=== PATIENT | male | born 1960 | race African-American/Black ===

== ENCOUNTER 2016-06-10 19:42 | Emergency (ER) | payer MEDICAID, OTHER ==
[~2016-06-10] VITALS: Ht 177.8 cm; Wt 70.5 kg
[2016-06-10 20:05] VITALS: Ht 177.8 cm; Wt 70.5 kg
[2016-06-11] MEDS ORDERED: LORA1TAB PO (00:02)
[2016-06-11 00:44] VITALS: PULSE 75; RESP 16
--- NOTE | 2016-06-11 01:01 | ERD ---
ER Documentation Chief Complaint Date/Time DATE: 06/11/16 TIME: 00:42 Chief Complaint cough x 5 days, insomnia, body aches HPI 55-year-old male complaining of insomnia 2 weeks. Patient stated that he wakes up every hour feeling short of breath. He uses albuterol inhaler, which only helped for about 10 minutes. He has a cough 1 week. Cough is only intermittent, does not interfere with sleep. Patient reports under a lot of stress both at home and work. He has history of asthma. Denies fever or chills. ROS All systems reviewed and are negative except as per history of present illness. Medications Home Meds Active Scripts Lorazepam* (Lorazepam*) 1 Mg Tablet, 1 MG PO QHS Y for INSOMNIA, #10 TAB Prov:WAYNE LEZAMA Courtney. 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 06/11/16 Allergies Allergies: Coded Allergies: No Known Allergy (Unverified , 06/10/16) PMhx/Soc Medical and Surgical Hx: pt denies Surgical Hx History of Surgery: No Anesthesia Reaction: No Hx Neurological Disorder: No Hx Respiratory Disorders: Yes (SOB and weakness) Hx Cardiac Disorders: No Hx Psychiatric Problems: No Hx Miscellaneous Medical Probl: No Hx Alcohol Use: No Hx Substance Use: No Hx Tobacco Use: No Smoking Status: Never smoker Physical Exam Vitals Vital Signs Date Time Temp Pulse Resp B/P Pulse Ox O2 Delivery O2 Flow Rate FiO2 06/10/16 20:05 98.3 84 20 150/71 100 Physical Exam General impression: Well-developed, well-nourished. Alert, oriented, in no acute distress Head: Normocephalic, atraumatic. Eyes: PERRL, EOM normal. Conjunctiva not injected. ENT: External canals clear. TM's pearly guevara. Nasal mucosa, oral mucosa and oropharynx are normal. Neck: Supple, nontender. No lymphanopathy. No nuchal rigidity. Respiration: Normal respiratory effort. Lungs clear to auscultate bilaterally. No wheezes, rales or rhonchi. Cardiovascular: Regular rate and rhythm. No murmurs or extra heart sounds. Abdomen: Abdomen normal to inspection. Nontender. No masses or organomegaly. Bowel sounds normal. Neuro: Mental status normal, speech normal. BATTALION FIRE CHIEF grossly intact. Skin: Normal turgor. No rash or lesions. Psych: Normal mood and affect. Procedures/MDM Well-appearing 55-year-old male presented to ED with insomnia 2 weeks. Patient reports shortness of breath, however he is lungs are clear to auscultate , his O2 sat 100%. He does not appear to have respiratory distress. I suspect his sense of shortness breath may be anxiety related. Patient has appointment with his PCP next week. I will prescribe for him Ativan nightly for a few days , and have him follow-up with his PCP. Patient appears well, stable for discharge and outpatient management. Medical decision making shared with patient and family. Education provided to patient and family. Patient and family expressed understanding of the plan. Medications on discharge: Ativan. Follow-up: Primary care provider in 2-3 days or return to ED if worse. Departure Diagnosis: Primary Impression: Insomnia Insomnia type: unspecified Qualified Code: G47.00 - Insomnia, unspecified type Additional Impression: Anxiety Condition: Good Patient Instructions: Your Body's Response to Anxiety, Treating Insomnia Referrals: [facility] YOU HAVE RECEIVED A MEDICAL SCREENING EXAM AND THE RESULTS INDICATE THAT YOU DO NOT HAVE A CONDITION THAT REQUIRES URGENT TREATMENT IN THE EMERGENCY DEPARTMENT. FURTHER EVALUATION AND TREATMENT OF YOUR CONDITION CAN WAIT UNTIL YOU ARE SEEN IN YOUR DOCTORS OFFICE WITHIN THE NEXT 1-2 DAYS. IT IS YOUR RESPONSIBILITY TO MAKE AN APPOINTMENT FOR FOLOW-UP CARE. IF YOU HAVE A PRIMARY DOCTOR --you should call your primary doctor and schedule an appointment IF YOU DO NOT HAVE A PRIMARY DOCTOR YOU CAN CALL OUR PHYSICIAN REFERRAL HOTLINE AT IF YOU CAN NOT AFFORD TO SEE A PHYSICIAN YOU CAN CHOSE FROM THE FOLLOWING [facility] [id number] [facility] [address] [facility] [address] [facility]. [facility] [address] [facility]. [facility] [address] [facility]. [facility]. [address] Additional Instructions: Call your primary care doctor TOMORROW for an appointment during the next 2-3 days.See the doctor sooner or return here if your condition worsens before your appointment time. WAYNE LEZAMA NP Jun 11, 2016 00:57
== END 2016-06-11 00:45 | disposition home or self-care (01) ==
LOC: FTE 19:42
DX: G47.00 Insomnia, unspecified (principal); F41.9 Anxiety disorder, unspecified
CPT/HCPCS: 99283

== ENCOUNTER 2016-06-16 08:32 | Inpatient (IN) | payer MEDICAID ==
[~2016-06-16] VITALS: Ht 172.7 cm; Wt 72.7 kg
[2016-06-16] VITALS (16 sets, daily range): BP systolic 77–156; BP diastolic 31–135; PULSE 64–136; RESP 22–49; TEMP 97.1; Ht 172.7 cm; Wt 72.7 kg
[~2016-06-16 08:32] MED LIST: LORA1TAB PO
[2016-06-16] MEDS ORDERED: ASPIRIN 325 MG TAB PO STA (08:34)
[2016-06-16] MEDS ORDERED: SOD CHLORIDE 0.9% 1,000 ML IV STA (08:34)
[2016-06-16] MEDS ORDERED: ADENOSINE 2 ML ONE (08:36)
[2016-06-16] MEDS ORDERED: DILTIAZEM-D5W 125MG/125ML DRIP 125 ML IV STA (08:53)
[2016-06-16] MEDS ORDERED: DILTIAZEM 25 MG INJ IV STA (08:53)
[2016-06-16] MEDS ORDERED: ADENOSINE 6 MG INJ IV ONE ×2 (09:00→19:00)
--- NOTE | 2016-06-16 09:24 | ERA ---
ER Documentation Chief Complaint Date/Time DATE: 06/16/16 TIME: 09:20 Chief Complaint BROUGHT IN VIA EMS DUE TO TACHYCARDIA HPI 55-year-old male history of hypertension who presents with tachycardia. The patient states just prior to arrival he started to feel his heart racing. EMS reports evidence of supraventricular tachycardia and tried 6 mg then 12 mg of adenosine without effect. The patient states that it was recently at a different ER for generalized weakness and shortness of breath. He denies any pleuritic pain, no calf swelling. He states intermittent compliance with his blood pressure medications. He denies any recent drugs or alcohol. The patient currently denies any chest pain lightheadedness or shortness of breath. ROS All systems reviewed and are negative except as per history of present illness. 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 06/11/16 Allergies Allergies: Coded Allergies: No Known Allergy (Unverified , 06/10/16) PMhx/Soc History of Surgery: No Anesthesia Reaction: No Hx Neurological Disorder: No Hx Respiratory Disorders: Yes (SOB and weakness) Hx Cardiac Disorders: No Hx Psychiatric Problems: No Hx Miscellaneous Medical Probl: No Hx Alcohol Use: No Hx Substance Use: No Hx Tobacco Use: No Smoking Status: Never smoker FmHx Family History: No coronary disease, No diabetes Physical Exam Vitals Vital Signs Date Time Temp Pulse Resp B/P Pulse Ox O2 Delivery O2 Flow Rate FiO2 06/16/16 09:09 Nasal Cannula 5 06/16/16 09:04 98.5 212 36 126/100 100 06/16/16 08:50 99 4.0 Physical Exam General: Well developed, well nourished, no acute distress Head: Normocephalic, atraumatic. Eyes: Pupils equally reactive, EOM intact ENT: Moist mucous membranes Neck: Supple, no lymphadenopathy Respiratory: Lungs clear bilaterally, no distress Cardiovascular: Regular tachycardia, no murmurs, rubs, or gallops Abdominal: Soft, non-tender, non-distended, no peritoneal signs : Deferred MSK: No edema, no unilateral swelling, 5/5 strength Neurologic: Alert and oriented, moving all extremities, normal speech, no focal weakness, no cerebellar signs Skin: No rash Psych: Normal mood Result Diagram: 06/16/1690406/16/16904 Results 24 hrs Laboratory Tests Test 06/16/16 09:05 Activated Partial Thromboplast Time 45.6Sec Anion Gap 15 Basophils # 0.010^3/ul Basophils % 0.1% Blood Morphology Comment Blood Urea Nitrogen 8mg/dl Calcium Level 5.8mg/dl Carbon Dioxide Level 19mmol/L Chloride Level 111mmol/L Creatinine 0.64mg/dl Eosinophils # 0.010^3/ul Eosinophils % 0.1% Ethyl Alcohol Level < 10.0mg/dl Glucose Level 119mg/dl Hematocrit 33.3% Hemoglobin 10.9g/dl INR International Normalized Ratio 2.11 Lymphocytes # 1.510^3/ul Lymphocytes % 13.3% Magnesium Level 1.4mg/dl Mean Corpuscular Hemoglobin 28.2pg Mean Corpuscular Hemoglobin Concent 32.7g/dl Mean Corpuscular Volume 86.1fl Mean Platelet Volume 7.9fl Monocytes # 1.010^3/ul Monocytes % 8.5% Neutrophils # 9.010^3/ul Neutrophils % 78.0% Nucleated Red Blood Cells # 0.010^3/ul Nucleated Red Blood Cells % 0.0/100WBC Platelet Count 90228^3/UL Potassium Level 2.9mmol/L Prothrombin Time 23.9Sec Prothrombin Time Ratio 1.9 Red Blood Count 3.8710^6/ul Red Cell Distribution Width 16.3% Sodium Level 142mmol/L Troponin I 0.062ng/ml White Blood Count 11.610^3/ul Current Medications Medications (Trade) Dose Ordered Sig/Seth Route PRN Reason Start Time Stop Time Status Last Admin Dose Admin Sodium Chloride (NS) 1,000 ml @ 1,000 mls/hr Q1H STAT IV 06/16/16 08:34 06/16/16 09:33 DC 06/16/16 09:12 Aspirin (Aspirin) 325 mg ONCE STAT PO 06/16/16 08:34 06/16/16 08:36 DC 06/16/16 09:13 Adenosine (Adenosine) 12 mg ONCE ONCE IV 06/16/16 09:00 06/16/16 09:01 DC 06/16/16 09:13 Diltiazem HCl 20 mg 20 mg ONCE STAT IV 06/16/16 08:53 06/16/16 08:54 DC 06/16/16 09:13 Diltiazem HCl 125 ml @ 5 mls/hr ONCE STAT IV 06/16/16 08:53 06/17/16 09:52 06/16/16 09:13 Calcium Gluconate 1 gm/Sodium Chloride 110 ml @ 110 mls/hr ONCE ONCE IVPB 06/16/16 11:30 06/16/16 12:29 Potassium Chloride 50 ml @ 50 mls/hr Q1H IVPB 06/16/16 10:00 06/16/16 12:59 Magnesium Sulfate/ Dextrose (Magnesium Sulfate 1 Gm/D5W) 100 ml @ 100 mls/hr ONCE ONCE IVPB 06/16/16 10:00 06/16/16 10:59 Procedures/MDM EKG, MONITORS, & DIAGNOSTIC IMAGING: Rhythm strip: Rate/Rhythm: Narrow complex tachycardia near 200 consistent with supraventricular tachycardia Impression: SVT EKG: I reviewed and interpreted a 12-lead EKG. Rhythm: Narrow complex tachycardia, regular consistent with SVT Ectopy: None Intervals: No abnormalities ST segments: No elevations or depressions T waves: No contiguous inversions Repeat EKG EKG: I reviewed and interpreted a 12-lead EKG. Rhythm: Apparent sinus tachycardia with ectopic atrial beats Ectopy: PVC Intervals: No abnormalities ST segments: No elevations or depressions T waves: No contiguous inversions Chest x-ray: I reviewed and interpreted a 1 view of the chest Mediastinum: No enlargement Cardiac silhouette: No cardiomegaly Airspace: Clear lung finnegan bilaterally without evidence of pneumothorax Bones: No evidence of fracture LAB INTERPRETATION: Multiple electrolyte disturbances including hypokalemia, hypomagnesemia, hypocalcemia of unclear significance., Troponin negative MEDICAL DECISION MAKING: The patient presents with asymptomatic supraventricular tachycardia. He had a recent ER visit for fatigue and shortness of breath. He does not describe any pleuritic pain, no evidence of DVT. No signs or symptoms concerning for pulmonary embolism. This is likely secondary to structural process given his prolonged uncontrolled hypertension. The patient will benefit from laboratory testing and diagnostic imaging. Low threshold for inpatient hospitalization for echocardiogram. ER COURSE: The patient was given 6 and 12 of adenosine in the field. He was given a second dose of 12 mg of adenosine here in the emergency room. The patient was set up on the monitor and nasal cannula was applied, pacer pads were applied to the patient. The patient had no effect with adenosine. Given that the patient has failed 3 doses of adenosine transitioned to Cardizem was initiated. The patient was given a 20 mg IV bolus of Cardizem and started on a drip. The patient seem to have rate control but still has tachycardia with ectopy. The patient is currently on a Cardizem drip. The patient has multiple electrolyte abnormalities that are being repleted including potassium, calcium, magnesium. These are possibly playing a role in his tachyarrhythmia. The patient also appears to be anticoagulated. He was asked and states that he was started on some blood thinning medication 2 weeks ago, he does not know the name. The patient's presentation is much more complicated and there is significant information that is lacking. I believe that inpatient hospitalization would be appropriate, outside hospital records are necessary. Given that the patient has a complicated presentation of supraventricular tachycardia with possible underlying structural heart disease I would recommend inpatient hospitalization. I kept the patient and/or family informed of laboratory and diagnostic imaging results throughout the emergency room course. DISPOSITION PLAN: Telemetry admission CONSULTATION: Accepting care team and consultations: I discussed the current laboratory data, diagnostic imaging and emergency care provided. Admitting team: Dr. Swanson Admitting team indication: Insurance directed Critical Care Note: Total time: 32 minutes Indication/Organ System Threat: SVT with tachypnea arrhythmia requiring adenosine bolus, titration of cardiogenic medications. I spent the above amount of critical care time with the patient, not including billable procedures. This included chart review, consultations, repeat bedside evaluations, and titration of appropriate medications to prevent cardiopulmonary or respiratory collapse. Departure Diagnosis: Primary Impression: Supraventricular tachycardia Additional Impressions: Hypokalemia Hypomagnesemia Hypocalcemia Condition: Stable LUCIA WILLIS MD Jun 16, 2016 09:24
[2016-06-16 09:27] LABS: BASOPHILS % 0.1 % (0.0-2.0); CHLORIDE 111 mmol/L (97-110); EOSINOPHILS % 0.1 % (0.0-7.0); HEMATOCRIT 33.3 % (42.0-52.0); HEMOGLOBIN 10.9 g/dl (14.0-18.0); LYMPHOCYTES # 1.5 10^3/ul (0.8-2.9); LYMPHOCYTES % 13.3 % (15.0-51.0); MEAN CORPUSCULAR HEMOGLOBIN 28.2 pg (29.0-33.0); MEAN CORPUSCULAR HGB CONC 32.7 g/dl (32.0-37.0); MEAN CORPUSCULAR VOLUME 86.1 fl (82.0-101.0); MEAN PLATELET VOLUME 7.9 fl (7.4-10.4); MONOCYTES % 8.5 % (0.0-11.0); PLATELET COUNT 261 10^3/UL (140-440); RED BLOOD COUNT 3.87 10^6/ul (4.70-6.10); RED CELL DISTRIBUTION WIDTH 16.3 % (11.5-14.5); UNCORRECTED WBC 11.6 10^3/ul (4.8-10.8); WHITE BLOOD COUNT 11.6 10^3/ul (4.8-10.8)
[2016-06-16 09:28] LABS: SODIUM 142 mmol/L (135-144)
--- NOTE | 2016-06-16 09:28 | RADRPT ---
PROCEDURE: XR Chest. CLINICAL INDICATION: Chest pain TECHNIQUE: Single portable view of the chest was obtained COMPARISON: None FINDINGS: There is mild cardiomegaly. There is mild pulmonary vascular congestion. In addition there is a possible right upper lobe infiltrate with right subpleural density. There is a right lower lobe consolidation with right pleural effusion. There is no pneumothorax. The bones and soft tissues are unremarkable. RPTAT: AA IMPRESSION: Mild cardiomegaly with pulmonary vascular congestion. Possible right upper lobe infiltrate with right subpleural density. Right lower lobe infiltrate and right pleural effusion. Further evaluation with CT chest is recommended. .Pete Ford MD, MD Date Time Electronically viewed and signed by .Pete Ford MD, MD on 06/16/2016 09:28 .S/
[2016-06-16 09:30] LABS: CREATININE 0.64 mg/dl (0.61-1.24)
[2016-06-16 09:31] LABS: ANION GAP 15 (8-16); BLOOD UREA NITROGEN 8 mg/dl (7-20); CARBON DIOXIDE 19 mmol/L (21-31); GLUCOSE 119 mg/dl (70-220); MAGNESIUM 1.4 mg/dl (1.7-2.5)
[2016-06-16] MEDS ORDERED: NISO17TA PO (09:31)
[2016-06-16] MEDS ORDERED: LOSA1TAB20 PO (09:32)
[2016-06-16 09:33] LABS: INR 2.11; PROTIME 23.9 Sec (12.2-14.2); PT RATIO 1.9
[2016-06-16 09:34] LABS: PARTIAL THROMBOPLASTIN TIME 45.6 Sec (25.0-35.0)
[2016-06-16 09:36] LABS: CONDITION 1; LH ANALYZER COMMENTS 1; POTASSIUM 2.9 mmol/L (3.5-5.1)
[2016-06-16 09:37] LABS: CALCIUM 5.8 mg/dl (8.4-10.2); ETHANOL < 10.0 mg/dl
[2016-06-16 09:43] LABS: TROPONIN-I 0.062 ng/ml (0.00-0.12)
[2016-06-16] MEDS ORDERED: MAGNESIUM SULFATE 1 GM/D5W 100 ML IVPB ONE ×2 (10:00→19:00)
[2016-06-16] MEDS ORDERED: ACETAMINOPHEN 325 MG TAB PO PRN ×2 (10:30→14:00)
[2016-06-16] MEDS ORDERED: ONDANSETRON 4 MG INJ IV PRN ×2 (10:30→14:00)
[2016-06-16] MEDS ORDERED: CALCIUM GLUCONATE 10% 1 GM in SOD CHLORIDE 0.9% 100 ML IVPB ONE (11:30)
[2016-06-16] MEDS: POTASSIUM CHLORIDE 50 ML IVPB SCH ×3 (11:43→15:09)
[2016-06-16] MEDS ORDERED: NITROGLYCERIN 2% 1 GM OINT PKT TD STA (13:04)
[2016-06-16] MEDS ORDERED: FUROSEMIDE 20 MG INJ IV STA (13:04)
[2016-06-16] MEDS ORDERED: NACL 0.9% 3 ML SYG IV SCH (14:00)
[2016-06-16] MEDS ORDERED: VANCOMYCIN IV PER PHARMACY XX SCH (14:00)
[2016-06-16] MEDS ORDERED: HYDROCODONE/APAP (5/325) TAB PO PRN (14:00)
[2016-06-16] MEDS ORDERED: VANCOMYCIN 1.5 GM in SOD CHLORIDE 0.9% 250 ML IVPB SCH (14:30)
--- NOTE | 2016-06-16 15:44 | RADRPT ---
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 Physician: VINAY HELTON Quality: Good Procedures: Transthoracic echocardiogram with complete 2D, M-Mode, and doppler examination. Indications: Pulm Edema. 2D/M Mode Doppler Measurement Value Normal Ranges Measurement Value Normal Ranges LVIDd 2D 5.9 3.5 - 5.6 cm AV Peak Marvin 1.0 m/sec LVIDs 2D 5.0 2.1 - 4.1 cm AV Peak PG 4.0 mmHg LVPWd 2D 1.1 0.6 - 1.1 cm AI Peak PG 57.0 mmHg IVSd 2D 1.0 0.6 - 1.1 cm AI Peak Marvin 3.8 m/sec AoR Diam 2D 3.0 2.0 - 3.7 cm AI PHT 387.0 msec LA/Ao 2D 2 0 - 1 TR Peak Marvin 4.0 m/sec LA Dimen 2D 5.1 2.3 - 4.0 cm TR Peak PG 65.0 mmHg RVSP 80.0 mmHg Findings Left Ventricle: Normal left ventricular wall thickness. Mild enlargement of left ventricle cavity. Severe global left ventricular systolic dysfunction. Ejection fraction is visually estimated at 20 %. Right Ventricle: Moderate right ventricular systolic dysfunction. Mild enlargement of right ventricle. Moderate right ventricular hypokinesis. Left Atrium: There is severe enlargement of left atrium. Right Atrium: There is severe enlargement of right atrium. Mitral Valve: Mitral valve leaflets appear mildly thickened. Mild mitral annular calcification. Severe mitral valve regurgitation. Aortic Valve: Aortic cusps appear mildly calcified. Mild to moderate aortic valve regurgitation. Tricuspid Valve: Normal appearance of the tricuspid valve. Estimated peak PA systolic pressure 80 mmHg. There is moderate to severe tricuspid regurgitation. Pulmonic Valve: There is mild to moderate pulmonic regurgitation. Pericardium: Normal pericardium with no significant pericardial effusion. Aorta: Normal aortic root. IVC: Dilated IVC without respiratory collapse consistent with elevated right atrial pressure. Conclusions 1.Normal left ventricular wall thickness. Mild enlargement of left ventricle cavity. Severe global left ventricular systolic dysfunction. Ejection fraction is visually estimated at 20 %. 2.Moderate right ventricular systolic dysfunction. Mild enlargement of right ventricle. 3.Severe mitral valve regurgitation. 4.Moderate to severe tricuspid regurgitation. 5.Mild to moderate aortic valve regurgitation. 6.Severe biatrial enlargement. 7.Severe pulmonary hypertension with PAP estimated to be 80 mmHg based on RA pressure of 15 mmHg. Electronically Signed By: Neil Ford 16-Jun-2016 15:43:55 -0800 Patient Name: MAHAMED STEVEN Study Date: 16-Jun-2016 [id number]
[2016-06-16] MEDS ORDERED: LORAZEPAM 2 MG INJ IV ONE ×2 (16:30→20:30)
[2016-06-16 17:00] LABS: AADO2 Arterial 602.8 mmHg (7.0-24.0); Allen Test ACCEPTAB; Arterial COHb 0.5 % (0.0-3.0); Arterial Fraction of Oxyhgb 94.3 % (93.0-99.0); Arterial HCO3 14.2 mmol/L (22.0-26.0); Arterial MetHb 0.2 % (0.0-1.5); Arterial Total Hemglobin 13.5 g/dl (12.0-18.0); MODE HFNC
--- NOTE | 2016-06-16 17:00 | HP ---
DATE OF ADMISSION: 06/16/2016 CHIEF COMPLAINT: Weakness, shortness breath. HISTORY OF PRESENT ILLNESS: The patient is a 55-year-old male who reports history of hypertension. Otherwise denies any medical history. The patient presents with several weeks of progressively wor sening weakness and shortness of breath. He also states that he has been unable to urinate for the past 2 days. In the ED, the patient was hypoxic and started on BiPAP. The patient was also noted t o be tachycardic. The patient is a somewhat poor historian. He denies any significant medical hist ory. Denies any chest pain, any constipation or diarrhea. Denies melena. He does state that he simons s lost over 20 pounds in the past week. He denies any history of diabetes or any prostate issues. PAST MEDICAL HISTORY: Hypertension. PAST SURGICAL HISTORY: Denies. HOME MEDICATIONS: 1. Losartan. 2. Hydrochlorothiazide. 3. . ALLERGIES: NO KNOWN DRUG ALLERGIES. FAMILY HISTORY: Diabetes in father. SOCIAL HISTORY: Denies alcohol, tobacco, or drug abuse. 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 REVIEW OF SYSTEMS: A 12-point review of systems is negative except that discussed in HPI. PHYSICAL EXAMINATION: VITAL SIGNS: Temperature is 97.8, pulse is 121, respiratory rate is 20, blood pressure 130/109, sat uration 100% on 2 liters. GENERAL: Alert with mild to moderate distress. HEENT: Normocephalic, atraumatic. NECK: Supple, no JVD, no lymphadenopathy. LUNGS: Clear to auscultation. CARDIOVASCULAR: Tachycardic. ABDOMEN: Nondistended, nontender, soft. EXTREMITIES: No clubbing, cyanosis, or edema. LABORATORIES: White count 11.6, hemoglobin 10.9, platelets are 261. Chemistry: Sodium is 142, pot assium is 2.9, chloride is 111, carbon dioxide 19, calcium is 5.8. Magnesium is 1.4. INR is 2.11. U-tox is less than 10. DIAGNOSTICS: Chest x-ray shows mild cardiomegaly with pulmonary vascular congestion, possible right upper lobe infiltrate with right subpleural density right lower lobe infiltrate with right pleural effusion. Further evaluation with CT chest is recommended. ASSESSMENT AND PLAN: 1. Acute respiratory failure secondary to pulmonary edema and/or right-sided pneumonia. Patient is not tolerating BiPAP well. Was switched to high flow O2 and admitted to the ICU. Will get a pulmo nology consultation. Will treat with IV antibiotics with broad spectrum antibiotics, vancomycin and Zosyn. Will also continue his Lasix IV. Patient has already received 6 mg of Lasix in the ED. Wi ll obtain a 2D echo to evaluate for the etiology of pulmonary edema. 2. Sepsis. Patient does have a history of sepsis with tachycardia and leukocytosis and tachypnea, so sepsis may be secondary to underlying pneumonia. Will treat with broad spectrum antibiotics. Ge t an ID consultation. 3. Urinary retention. The patient has not urinated for 2 days. Patient had a Singh placed in the ED with only minimal urine noted. Will obtain a urology consultation. Patient has no elevation in his creatinine at this time. Will obtain a renal ultrasound. 4. Hyperkalemia. Repleted in the ED. 5. Hypomagnesemia. Repleted in the ED. 6. Hypocalcemia. Repleted in the ER. 7. Coagulopathy. Patient's INR is elevated. This could be secondary to DIC versus other pathology . Will obtain an ultrasound of the liver to evaluate for cirrhosis and to rule out liver pathology as the etiology of the coagulopathy. 8. History of hypertension. Blood pressure is currently stable. Will hold antihypertensive medica tions as patient appears to be septic. 9. 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 10. Prophylaxis: SCDs. Dictated By: VINAY HELTON MD BS/NTS Conf#: [id number] DID#: [id number]
[2016-06-16] MEDS ORDERED: MAGNESIUM SULFATE 3 GM in SOD CHLORIDE 0.9% 100 ML IVPB ONE (17:30)
[2016-06-16] MEDS ORDERED: POTASSIUM CHLORIDE 30 MEQ in SOD CHLORIDE 0.9% 150 ML IVPB ONE (17:30)
[2016-06-16] MEDS: PIPER-TAZO 3.375 GM IV (PMX) 100 ML IVPB SCH ×2 (17:55→19:49)
[2016-06-16] MEDS ORDERED: AMIODARONE 150MG/D5W BOLUS 100 ML IV ONE (19:00)
[2016-06-16] MEDS ORDERED: ENOXAPARIN 80 MG/0.8 ML SYG SC SCH (19:00)
[2016-06-16] MEDS ORDERED: NA BICARBONATE 8.4% 50 ML SYG IV ONE (19:00)
[2016-06-16 19:03] LABS: ADD UMIC YES; URINE BILIRUBIN (Dip) NEGATIVE (NEGATIVE); URINE BLOOD (Dip) 3+ (NEGATIVE); URINE COLOR YELLOW (YELLOW); URINE GLUCOSE (Dip) NEGATIVE (NEGATIVE); URINE KETONES (Dip) NEGATIVE (NEGATIVE); URINE LEUKOCYTE ESTERASE (Dip) NEGATIVE (NEGATIVE); URINE NITRITE (Dip) NEGATIVE (NEGATIVE); URINE TOTAL PROTEIN (Dip) 2+ (NEGATIVE); URINE UROBILINOGEN (Dip) 1.0 E.U./dL (0.1-1.0)
[2016-06-16 19:18] LABS: BACTERIA,URINE RARE; SQUAMOUS EPITHELIAL CELL,UR RARE; URINE RBCS >50 /HPF (0)
[2016-06-16 19:22] LABS: BARBITURATES NEGATIVE (NEGATIVE); BENZODIAZEPINES NEGATIVE (NEGATIVE); CANNABINOIDS NEGATIVE (NEGATIVE); COCAINE NEGATIVE (NEGATIVE); OPIATES NEGATIVE (NEGATIVE)
[2016-06-16 19:54] LABS: AADO2 Arterial 636.7 mmHg (7.0-24.0); Allen Test ACCEPTAB; Arterial Base Excess -19.2 mmol/L (-3.0-3); Arterial COHb 0.3 % (0.0-3.0); Arterial Fraction of Oxyhgb 70.4 % (93.0-99.0); Arterial HCO3 8.2 mmol/L (22.0-26.0); Blood Gas IEPAP 15/5; Blood Gas PS 10; MODE BIPAP - S/T
[2016-06-16] MEDS ORDERED: DILTIAZEM 25 MG INJ IV ONE (20:30)
[2016-06-16 20:32] LABS: CK-MB 22.4 ng/ml (0.0-2.4)
[2016-06-16 20:39] LABS: TROPONIN-I 5.15 ng/ml (0.00-0.12)
--- NOTE | 2016-06-16 20:46 | CONS ---
DATE OF ADMISSION: 06/16/2016 DATE OF CONSULTATION: 06/16/2016 TYPE OF CONSULTATION: Infectious disease. REASON FOR CONSULTATION: Antibiotic management. HISTORY OF PRESENT ILLNESS: Jp Ochoa is a 55-year-old male who comes in with weakness and short ness of breath. His past problems include hypertension, which is only past medical problem. He pre sents with several weeks of progressively worsening weakness and shortness of breath. He has also b een unable to urinate for the past 2 days. He was hypoxemic in the emergency room, started on BiPAP . He was tachycardic. He states that he has lost over 20 pounds in the past week. There is no his tory of diabetes, heart disease, or BPH. On admission, his white count is 11.6, hemoglobin 10.9, pl atelets 261. BUN and creatinine is 8/0.64, potassium was low at 2.9, calcium is low at 5.8. His ur ine is negative for leukocyte esterase and negative for nitrites, it has 2+ protein. A chest x-ray shows mild cardiomegaly with pulmonary vascular congestion, possible right upper lobe infiltrate wit h right subpleural density, right lower lobe infiltrate, right pleural effusion. Further evaluation with CT chest was recommended. PAST MEDICAL HISTORY: Operations as outlined. FAMILY HISTORY: Positive for diabetes. ALLERGIES: NONE TO PENICILLIN, SULFA, OR FOODS. SOCIAL HISTORY: He does not smoke, drink, or abuse drugs. 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 MEDICATIONS: Per chart and include: 1. Losartan. 2. Hydrochlorothiazide. REVIEW OF SYSTEMS: Noncontributory. PHYSICAL EXAMINATION: GENERAL: The patient is a well-developed, well-nourished male who is alert, responsive. Actually, he is in some mild to moderate distress presently. VITAL SIGNS: Stable. He is afebrile. SKIN: Without generalized rash. HEENT: Within normal limits. NECK: Supple. LYMPH NODES: None palpable. CHEST: Decreased breath sounds at the bases. HEART: Without murmur or gallop. He is tachycardic. ABDOMEN: Soft, nontender without organosplenomegaly or masses. EXTREMITIES: Without cyanosis, clubbing, or edema. RECTAL AND GENITAL: Deferred. NEUROLOGIC: No focal neurological abnormality. IMPRESSION AND PLAN: The patient has acute respiratory failure secondary to right-sided pneumonia a nd possibly pulmonary edema. He was switched to high flow oxygen and admitted to the ICU, may need intubation. The patient was started on vancomycin and Zosyn and he was also started on IV Lasix. A 2D echocardiogram was ordered. The patient has systemic inflammatory response syndrome with tachyc ardia, leukocytosis, tachypnea. Blood cultures should be done. Urine culture is probably negative since is nitrite and leukocyte esterase are negative, but a culture should there be done anyhow. We will continue him on vancomycin and Zosyn. I will dictate my findings to the hospitalist. Dictated By: BAO MANRIQUEZ MD, JD/NTS Conf#: [id number] DID#: [id number] CC: DEMETRIA DAVALOS MD;*[facility]*
[2016-06-16] MEDS: morphine 2 MG INJ IV PRN (21:13)
[2016-06-16 22:09] LABS: AADO2 Arterial 550.5 mmHg (7.0-24.0); Allen Test ACCEPTAB; Arterial Base Excess -16.4 mmol/L (-3.0-3); Arterial COHb 0.1 % (0.0-3.0); Arterial Fraction of Oxyhgb 96.5 % (93.0-99.0); Arterial HCO3 11.6 mmol/L (22.0-26.0); Arterial MetHb 0.4 % (0.0-1.5); Arterial Total Hemglobin 13.4 g/dl (12.0-18.0); Blood Gas IEPAP 15/5; MODE MASK - BIPAP
[2016-06-16 23:31] LABS: BASOPHILS % 0.1 % (0.0-2.0); EOSINOPHILS % 0.1 % (0.0-7.0); HEMATOCRIT 38.3 % (42.0-52.0); HEMOGLOBIN 12.3 g/dl (14.0-18.0); LYMPHOCYTES # 1.4 10^3/ul (0.8-2.9); LYMPHOCYTES % 11.4 % (15.0-51.0); MEAN CORPUSCULAR HEMOGLOBIN 27.8 pg (29.0-33.0); MEAN CORPUSCULAR VOLUME 87.1 fl (82.0-101.0); MEAN PLATELET VOLUME 8.4 fl (7.4-10.4); MONOCYTE # 0.7 10^3/ul (0.3-0.9); MONOCYTES % 5.8 % (0.0-11.0); NEUTROPHIL # 10.2 10^3/ul (1.6-7.5); NEUTROPHILS % 82.6 % (39.0-77.0); PLATELET COUNT 325 10^3/UL (140-440); RED CELL DISTRIBUTION WIDTH 16.5 % (11.5-14.5); UNCORRECTED WBC 12.4 10^3/ul (4.8-10.8); WHITE BLOOD COUNT 12.4 10^3/ul (4.8-10.8)
[2016-06-16 23:35] LABS: CONDITION 1; LH ANALYZER COMMENTS 1
[2016-06-16 23:38] LABS: INR 1.74; PROTIME 20.5 Sec (12.2-14.2); PT RATIO 1.6
[2016-06-16] MEDS ORDERED: NORepinephrine 8MG/250 ML (PMX 250 ML ONE (23:38)
[2016-06-16 23:39] LABS: PARTIAL THROMBOPLASTIN TIME 37.3 Sec (25.0-35.0)
[2016-06-17] VITALS (56 sets, daily range): BP systolic 33–259; BP diastolic 15–190; PULSE 37–135; RESP 13–35
[2016-06-17] MEDS ORDERED: ALBUMIN HUMAN 25% 50 ML IV ONE (00:30)
[2016-06-17] MEDS ORDERED: EPINEPHrine 0.1 MG/ML SYG ONE ×2 (00:44→12:58)
[2016-06-17 01:00] LABS: BASOPHILS % 0.2 % (0.0-2.0); EOSINOPHILS % 0.1 % (0.0-7.0); HEMATOCRIT 35.8 % (42.0-52.0); HEMOGLOBIN 11.5 g/dl (14.0-18.0); LYMPHOCYTES # 1.7 10^3/ul (0.8-2.9); LYMPHOCYTES % 14.7 % (15.0-51.0); MEAN CORPUSCULAR HEMOGLOBIN 28.5 pg (29.0-33.0); MEAN CORPUSCULAR VOLUME 88.9 fl (82.0-101.0); MEAN PLATELET VOLUME 8.4 fl (7.4-10.4); MONOCYTE # 0.4 10^3/ul (0.3-0.9); MONOCYTES % 3.1 % (0.0-11.0); NEUTROPHIL # 9.5 10^3/ul (1.6-7.5); NEUTROPHILS % 81.9 % (39.0-77.0); NUCLEATED RED BLOOD CELLS% 4.6 /100WBC (0.0-0.0); PLATELET COUNT 312 10^3/UL (140-440); RED BLOOD COUNT 4.03 10^6/ul (4.70-6.10); RED CELL DISTRIBUTION WIDTH 16.8 % (11.5-14.5); UNCORRECTED WBC 11.6 10^3/ul (4.8-10.8); WHITE BLOOD COUNT 11.6 10^3/ul (4.8-10.8)
[2016-06-17 01:05] LABS: CONDITION 1; LH ANALYZER COMMENTS 1; NUCLEATED RED BLOOD CELLS # 0.5 10^3/ul (0.0-0.0)
[2016-06-17 01:06] LABS: ALBUMIN 2.5 g/dl (3.3-4.9); INR 2.15; POTASSIUM 5.9 mmol/L (3.5-5.1); PROTIME 24.2 Sec (12.2-14.2); PT RATIO 1.9
[2016-06-17 01:07] LABS: PARTIAL THROMBOPLASTIN TIME 34.5 Sec (25.0-35.0)
[2016-06-17 01:08] LABS: CREATININE 1.73 mg/dl (0.61-1.24); MAGNESIUM 3.6 mg/dl (1.7-2.5)
[2016-06-17 01:09] LABS: ALBUMIN/GLOBULIN RATIO 0.73; BILIRUBIN,DIRECT 0.1 mg/dl (0.00-0.20); BILIRUBIN,INDIRECT 1.2 mg/dl (0-1.1); BILIRUBIN,TOTAL 1.3 mg/dl (0.2-1.3); TOTAL PROTEIN 5.9 g/dl (6.1-8.1)
[2016-06-17 01:10] LABS: CALCIUM 7.1 mg/dl (8.4-10.2)
[2016-06-17] MEDS: morphine 2 MG INJ IV PRN (01:13)
[2016-06-17] MEDS ORDERED: NORepinephrine 8MG/250 ML (PMX 250 ML IV SCH (01:15)
[2016-06-17] MEDS: PIPER-TAZO 3.375 GM IV (PMX) 100 ML IVPB SCH ×3 (01:26→12:00)
[2016-06-17] MEDS ORDERED: DOPamine-D5W 1.6 MG/ML 250 ML ONE (01:37)
[2016-06-17] MEDS ORDERED: DOPamine-D5W 1.6 MG/ML 250 ML IV SCH (01:45)
[2016-06-17] MEDS ORDERED: CA CHLORIDE 10% 10 ML SYRINGE IV ONE (02:00)
[2016-06-17 02:13] LABS: TROPONIN-I 6.57 ng/ml (0.00-0.12)
--- NOTE | 2016-06-17 03:02 | RADRPT ---
PROCEDURE: XR Chest. CLINICAL INDICATION: Line placement. TECHNIQUE: Single frontal chest x-ray. COMPARISON: 06/17/2016 FINDINGS: Endotracheal tube tip is at the level of clavicles, 10 cm above taco. An orogastric tube tip is i n the stomach. Left subclavian central line tips in the SVC. Heart is enlarged. There are bilater al central infiltrates redemonstrated. There is there is increased right pleural fluid.. There is no pneumothorax. The osseous structures are unremarkable. IMPRESSION: Orogastric tube tip in the stomach. New left subclavian central venous line with tip in the SVC. N o pneumothorax. Increased right pleural fluid. Redemonstrated central infiltrates. Otherwise no c hange. RPTAT: [facility]VK .Brian Gonzalez MD, Date Time Electronically viewed and signed by .Brian Gonzalez MD, on 06/17/2016 03:02 .K/
--- NOTE | 2016-06-17 04:17 | RADRPT ---
PROCEDURE: XR Chest. CLINICAL INDICATION: POST CARDIAC ARREST TECHNIQUE: Portable single view of the chest COMPARISON: 06/16 FINDINGS: Endotracheal tube has been placed and is in good position. Cardiomegaly is again seen. Loculated f luid at the right lung apex and small right effusion. Background of probable alveolar edema. Exter nal pacer device is overlie the chest. IMPRESSION: Endotracheal tube in good position. Probable pulmonary edema. Right effusion and cardiomegaly. RPTAT: HLBE Tiff Wood Physician Date Time Electronically viewed and signed by Tiff Wood Physician on 06/17/2016 04:16 LE/
[2016-06-17] MEDS ORDERED: ALBUMIN HUMAN 25% 100 ML IV ONE (04:30)
[2016-06-17] MEDS ORDERED: FUROSEMIDE 20 MG INJ IV ONE (04:30)
[2016-06-17 05:09] LABS: HAAIG REFLEX REFLEX FILED
[2016-06-17 05:29] LABS: EOSINOPHILS % 0.2 % (0.0-7.0); HEMATOCRIT 35.5 % (42.0-52.0); HEMOGLOBIN 11.2 g/dl (14.0-18.0); LYMPHOCYTES # 1.8 10^3/ul (0.8-2.9); LYMPHOCYTES % 12.7 % (15.0-51.0); MEAN CORPUSCULAR HEMOGLOBIN 28.1 pg (29.0-33.0); MEAN CORPUSCULAR HGB CONC 31.6 g/dl (32.0-37.0); MEAN PLATELET VOLUME 8.1 fl (7.4-10.4); MONOCYTE # 0.2 10^3/ul (0.3-0.9); MONOCYTES % 1.2 % (0.0-11.0); NEUTROPHIL # 12.1 10^3/ul (1.6-7.5); NEUTROPHILS % 85.9 % (39.0-77.0); NUCLEATED RED BLOOD CELLS% 4.2 /100WBC (0.0-0.0); PLATELET COUNT 316 10^3/UL (140-440); RED BLOOD COUNT 3.99 10^6/ul (4.70-6.10); RED CELL DISTRIBUTION WIDTH 16.7 % (11.5-14.5); UNCORRECTED WBC 14.1 10^3/ul (4.8-10.8); WHITE BLOOD COUNT 14.1 10^3/ul (4.8-10.8)
[2016-06-17 05:37] LABS: CONDITION 1; LH ANALYZER COMMENTS 1; NUCLEATED RED BLOOD CELLS # 0.6 10^3/ul (0.0-0.0); SUSPECT 1
[2016-06-17 05:50] LABS: IRON 106 ug/dl (35-150)
[2016-06-17 05:57] LABS: CHOL/HDL RATIO 5.6 RATIO; MAGNESIUM 3.6 mg/dl (1.7-2.5); PHOSPHORUS 12.3 mg/dl (2.5-4.9)
[2016-06-17 05:59] LABS: TOTAL IRON BINDING CAPACITY 198 ug/dl (241-421)
[2016-06-17] MEDS ORDERED: PANTOPRAZOLE 40 MG INJ IV SCH (06:00)
[2016-06-17] MEDS ORDERED: VANCOMYCIN 1.25 GM in SOD CHLORIDE 0.9% 250 ML IVPB SCH (06:00)
[2016-06-17 06:38] LABS: ALBUMIN 2.8 g/dl (3.3-4.9)
[2016-06-17 06:39] LABS: CHLORIDE 104 mmol/L (97-110); SODIUM 144 mmol/L (135-144)
[2016-06-17 06:41] LABS: ALBUMIN/GLOBULIN RATIO 0.82; ANION GAP 37 (8-16); BILIRUBIN,INDIRECT 0.9 mg/dl (0-1.1); BILIRUBIN,TOTAL 1.7 mg/dl (0.2-1.3); BLOOD UREA NITROGEN 18 mg/dl (7-20); CREATININE 2.19 mg/dl (0.61-1.24); TOTAL PROTEIN 6.2 g/dl (6.1-8.1)
[2016-06-17 06:42] LABS: ALKALINE PHOSPHATASE 121 IU/L (42-121); CALCIUM 10.3 mg/dl (8.4-10.2)
[2016-06-17 06:48] LABS: CARBON DIOXIDE 9 mmol/L (21-31); POTASSIUM 6.1 mmol/L (3.5-5.1)
[2016-06-17 06:49] LABS: GLUCOSE 60 mg/dl (70-220)
[2016-06-17 06:50] LABS: ALANINE AMINOTRANSFERASE 1811 IU/L (13-69)
[2016-06-17] MEDS ORDERED: ALBUTEROL 0.5% (NEB) 2.5 MG/0.5 ML AMP ONE (06:50)
[2016-06-17] MEDS ORDERED: NA BICARBONATE 8.4% 50 ML SYG IV STA ×2 (06:56→07:15)
[2016-06-17] MEDS ORDERED: SOD CHLORIDE 0.9% 1,000 ML IV SCH (06:56)
[2016-06-17] MEDS ORDERED: VECURONIUM 100 MG in DEXTROSE 5% 100 ML IV SCH (06:56)
[2016-06-17] MEDS ORDERED: NA BICARBONATE 8.4% 50 ML SYG ONE ×2 (06:57→07:15)
[2016-06-17] MEDS ORDERED: MIDAZOLAM (DRIP) 50 mg/50 mL 50 ML IV SCH (07:00)
[2016-06-17] MEDS ORDERED: OCULAR LUBRICANT 3.5 GM OPH OINT BOTH EYES SCH (07:00)
[2016-06-17] MEDS ORDERED: FENTAnyl 50 MCG/ML VIAL IV SCH (07:00)
[2016-06-17] MEDS ORDERED: MEPERIDINE 25 MG INJ IV PRN ×2 (07:00)
[2016-06-17] MEDS ORDERED: DEXTROSE 50% 50 ML SYRINGE IV PRN ×2 (07:00)
[2016-06-17] MEDS: ACCUCHECK XX SCH ×2 (07:00→08:00)
[2016-06-17] MEDS ORDERED: INSULIN REGULAR, HUMAN 100 UNIT in SOD CHLORIDE 0.9% 99 ML IV SCH ×2 (07:00)
[2016-06-17] MEDS ORDERED: ACETAMINOPHEN 650MG/20.3ML CUP PO PRN (07:00)
[2016-06-17] MEDS ORDERED: ACETAMINOPHEN 650 MG SUPP PR PRN (07:00)
[2016-06-17 07:21] LABS: HEPATITIS B CORE ANTIBODY REACTIVE (NEGATIVE)
--- NOTE | 2016-06-17 07:27 | CONS ---
Date/Time of Note Date/Time of Note DATE: 06/17/16 TIME: 07:20 Assessment/Plan Assessment/Plan Additional Assessment/Plan Assessment and recommendations; next 1. Patient admitted with shortness of breath chest x-ray from yesterday as well as from this morning is showing significant cardiomegaly with evidence of pulmonary edema. Endotracheal tube has been pushed in by 2 cm since the last chest x-ray. 2. Severe metabolic acidosis. 3. Status post 4 CPRs. 5. Likely renal insufficiency. 6. Hypertension. Now currently quite hypotensive requiring high-dose pressor support. 7. Severe underlying cardiomyopathy. 2D echocardiogram done yesterday showing an EF of around 20%. Next Continue current ventilator settings. Replace bicarbonate aggressively, obtain a stat complete metabolic panel. Obtain a stat ABG. Continue Levophed. Patient will need to have an arterial line placement which will be done shortly. Once the lab work is obtained, I will reviewed and make further recommendations. Continue broad-spectrum antibiotic coverage for now. Monitor renal function. Start sodium bicarb drip. Monitor blood sugars. Prognosis remains extremely guarded. Consultation Date/Type/Reason Admit Date/Time Jun 16, 2016 at 10:06 Date of Consultation: Jun 17, 2016 Type of Consultation: Pulmonary/critical care Reason for Consultation 55-year-old F [place] male admitted to ICU with complaints of shortness of breath patient also was found to be in SVT in the ER and was given adenosine with conversion to sinus rhythm however the patient was quite acidotic was initially put on BiPAP and the patient around 1130 last night had a cardiac arrest event the patient had to be intubated put on mechanical ventilation. The patient has had 3 episodes of cardiac arrest and has undergone 3 rounds of CPR so far the last one was just a short while ago. Going to medical records the patient presented to ER with shortness of breath going on for the last 2 days and has been in various hospitals for the last couple of weeks with similar complaints. Extent of any workup currently is unknown. Past medical history based on medication; history of hypertension. Next Medications; were reviewed patient currently on high-dose Levophed drip also received dopamine drip. Has been resuscitated during CPR and given sodium bicarbonate. Allergies; R none Social history; is not significant nausea of any alcohol tobacco or drug abuse. Family history; patient apparently has 2 brothers. Occupational history; not available. Review of systems; currently unable to be obtained. General examination; middle aged man, or intubated unresponsive. Social History Smoking Status: Never smoker Exam/Review of Systems Vital Signs Vitals Vital Signs Date Time Temp Pulse Resp B/P Pulse Ox O2 Delivery O2 Flow Rate FiO2 06/17/16 05:06 82 32 94 94 06/17/16 04:00 101/56 Mechanical Ventilator 06/16/16 23:30 97.3 06/16/16 18:45 2.0 Intake and Output 06/16/16 06/16/16 06/17/16 15:00 23:00 07:00 Intake Total 50 ml 315.9 ml 541.02 ml Output Total 505 ml Balance 50 ml -189.1 ml 541.02 ml Exam H EENT examination; supple neck, positive JVD. Pupils are midsize and reactive to light bilaterally. Fair dentition. No neck masses, no thyromegaly. Chest examination; diminished breath sounds bilaterally. S1-S2 audible, tachycardic no murmurs. Abdomen examination; soft, nondistended, no organomegaly. Umbilicus is inverted. There is no scrotal or penile edema. Bowel sounds are absent. Extremity examination; no peripheral edema. Femoral pulses are 1+ bilaterally. SURGICAL SPECIALIST examination; patient is unresponsive. Current ventilator settings; assist control 14, tidal volume 500, PEEP of 5, 100 % FiO2. Results Result Diagram: 06/17/16 0430 06/17/16 0430 Results 24 hrs Laboratory Tests Test 06/16/16 09:05 06/16/16 15:57 06/16/16 18:00 06/16/16 19:36 Activated Partial Thromboplast Time 45.6 H Anion Gap 15 Basophils # 0.0 Basophils % 0.1 Blood Morphology Comment Blood Urea Nitrogen 8 Calcium Level 5.8 *L Carbon Dioxide Level 19 L Chloride Level 111 H Creatinine 0.64 Eosinophils # 0.0 Eosinophils % 0.1 Ethyl Alcohol Level < 10.0 Glucose Level 119 Hematocrit 33.3 L Hemoglobin 10.9 L INR International Normalized Ratio 2.11 Lymphocytes # 1.5 Lymphocytes % 13.3 L Magnesium Level 1.4 L Mean Corpuscular Hemoglobin 28.2 L Mean Corpuscular Hemoglobin Concent 32.7 Mean Corpuscular Volume 86.1 Mean Platelet Volume 7.9 Monocytes # 1.0 H Monocytes % 8.5 Neutrophils # 9.0 H Neutrophils % 78.0 H Nucleated Red Blood Cells # 0.0 Nucleated Red Blood Cells % 0.0 Platelet Count 261 Potassium Level 2.9 *L Prothrombin Time 23.9 H Prothrombin Time Ratio 1.9 Red Blood Count 3.87 L Red Cell Distribution Width 16.3 H Sodium Level 142 Troponin I 0.062 White Blood Count 11.6 H Arterial Blood HCO3 14.2 L 8.2 *L Arterial Blood Base Excess -10.0 L -19.2 L Arterial Blood Oxygen Saturation 95.0 71.3 L Gabe Test ACCEPTAB ACCEPTAB Arterial Blood Gas Puncture Site Left Radial Right Radial Arterial Blood Carboxyhemoglobin 0.5 0.3 Arterial Blood Date Drawn 06/16/2016 4:52:33 PM 06/16/2016 7:43:59 PM Arterial Blood Methemoglobin 0.2 1.0 Arterial Blood pCO2 (Temp correct) 27.4 L 24.6 L Arterial Blood pH (Temp corrected) 7.333 L 7.139 *L Arterial Blood pO2 (Temp corrected) 82.8 51.7 *L Blood Gas A-a O2 Differential 602.8 H 636.7 H Blood Gas Modality HFNC BIPAP - S/T Blood Gas Notified Time 06/16/2016 4:59:53 PM 06/16/2016 7:52:12 PM Blood Gas Notified Whom [facility] Blood Gas Specimen Source Blood arterial Blood arterial Blood Gas Temperature 37.0 37.0 FiO2 100.0 100.0 Oxyhemoglobin Percent 94.3 70.4 L Total Hemoglobin 13.5 8.0 L Urine Amphetamines Screen NEGATIVE Urine Bacteria RARE Urine Barbiturates NEGATIVE Urine Benzodiazepines Screen NEGATIVE Urine Bilirubin NEGATIVE Urine Cannabinoids NEGATIVE Urine Clarity SLIGHTLY CLOUDY Urine Cocaine Screen NEGATIVE Urine Color YELLOW Urine Glucose NEGATIVE Urine Hemoglobin 3+ H Urine Ketones NEGATIVE Urine Leukocyte Esterase NEGATIVE Urine Microscopic RBC >50 Urine Microscopic WBC 0-2 Urine Nitrite NEGATIVE Urine Opiates Screen NEGATIVE Urine Specific Nabb >=1.030 H Urine Squamous Epithelial Cells RARE Urine Total Protein 2+ H Urine Urobilinogen 1.0 E.U./dL Urine pH 6.0 Blood Gas Actual Respiration Rate 46 Blood Gas Critical Value Read Back Karson ROYAL RN Blood Gas IPAP/EPAP Ratio 15/5 Blood Gas Pressure Support 10 Blood Gas Respiration Rate 16.0 Test 06/16/16 20:00 06/16/16 21:46 06/16/16 22:18 06/16/16 23:40 Creatine Kinase 272 H Creatine Kinase Index 8.2 Creatinine Kinase MB (Mass) 22.40 H Troponin I 5.150 *H Arterial Blood HCO3 11.6 L Arterial Blood Base Excess -16.4 L Arterial Blood Oxygen Saturation 97.0 Gabe Test ACCEPTAB Arterial Blood Gas Puncture Site Right Radial Arterial Blood Carboxyhemoglobin 0.1 Arterial Blood Date Drawn 06/16/2016 10:00:58 PM Arterial Blood Methemoglobin 0.4 Arterial Blood pCO2 (Temp correct) 34.8 L Arterial Blood pH (Temp corrected) 7.141 *L Arterial Blood pO2 (Temp corrected) 127.7 H Blood Gas A-a O2 Differential 550.5 H Blood Gas Actual Respiration Rate 52 Blood Gas Critical Value Read Back V GENNY ESPINOZA Blood Gas IPAP/EPAP Ratio 15 Blood Gas Modality MASK - BIPAP Blood Gas Notified Time 06/16/2016 10:09:33 PM Blood Gas Notified Whom Blood Gas Respiration Rate 24.0 Blood Gas Specimen Source Blood arterial Blood Gas Temperature 37.0 FiO2 100.0 Oxyhemoglobin Percent 96.5 Total Hemoglobin 13.4 Activated Partial Thromboplast Time 37.3 H Basophils # 0.0 Basophils % 0.1 Blood Morphology Comment Eosinophils # 0.0 Eosinophils % 0.1 Hematocrit 38.3 L Hemoglobin 12.3 L INR International Normalized Ratio 1.74 Lymphocytes # 1.4 Lymphocytes % 11.4 L Mean Corpuscular Hemoglobin 27.8 L Mean Corpuscular Hemoglobin Concent 32.0 Mean Corpuscular Volume 87.1 Mean Platelet Volume 8.4 Monocytes # 0.7 Monocytes % 5.8 Neutrophils # 10.2 H Neutrophils % 82.6 H Nucleated Red Blood Cells # 0.0 Nucleated Red Blood Cells % 0.0 Platelet Count 325 # Prothrombin Time 20.5 H Prothrombin Time Ratio 1.6 Red Blood Count 4.40 L Red Cell Distribution Width 16.5 H White Blood Count 12.4 H Bedside Glucose 68 L Test 06/17/16 00:34 06/17/16 00:35 06/17/16 04:30 06/17/16 06:56 Activated Partial Thromboplast Time 34.5 Alanine Aminotransferase (ALT/SGPT) 650 H 1811 H Albumin 2.5 L 2.8 L Albumin/Globulin Ratio 0.73 0.82 Alkaline Phosphatase 113 121 Anion Gap 33 #H 37 H Aspartate Amino Transf (AST/SGOT) 917 H Pending Basophils # 0.0 0.0 Basophils % 0.2 0.0 Blood Morphology Comment Blood Urea Nitrogen 15 18 Calcium Level 7.1 L 10.3 H Carbon Dioxide Level 12 L 9 *L Chloride Level 104 104 Creatinine 1.73 #H 2.19 H Direct Bilirubin 0.10 0.80 #H Eosinophils # 0.0 0.0 Eosinophils % 0.1 0.2 Globulin 3.40 H 3.40 H Glucose Level 93 60 #L Hematocrit 35.8 L 35.5 L Hemoglobin 11.5 L 11.2 L INR International Normalized Ratio 2.15 Indirect Bilirubin 1.2 H 0.9 Lymphocytes # 1.7 1.8 Lymphocytes % 14.7 L 12.7 L Magnesium Level 3.6 #H 3.6 H Mean Corpuscular Hemoglobin 28.5 L 28.1 L Mean Corpuscular Hemoglobin Concent 32.0 31.6 L Mean Corpuscular Volume 88.9 89.0 Mean Platelet Volume 8.4 8.1 Monocytes # 0.4 0.2 L Monocytes % 3.1 1.2 Neutrophils # 9.5 H 12.1 H Neutrophils % 81.9 H 85.9 H Nucleated Red Blood Cells # 0.5 H 0.6 H Nucleated Red Blood Cells % 4.6 H 4.2 H Phosphorus Level 9.0 H 12.3 #H Platelet Count 312 316 Potassium Level 5.9 #H 6.1 *H Prothrombin Time 24.2 H Prothrombin Time Ratio 1.9 Red Blood Count 4.03 L 3.99 L Red Cell Distribution Width 16.8 H 16.7 H Sodium Level 143 144 Total Bilirubin 1.3 1.7 H Total Protein 5.9 L 6.2 White Blood Count 11.6 H 14.1 #H Creatine Kinase 238 H Creatine Kinase Index 7.6 Creatinine Kinase MB (Mass) 18.00 H Troponin I 6.570 *H Cholesterol Level 85 L Cholesterol/HDL Ratio 5.6 Folate Pending HDL Cholesterol 15 L HIV (1&2) Antibody Pending Hepatitis B Core Total Antibody Pending Hepatitis B Surface Antigen NEGATIVE Hepatitis C Antibody Pending Iron Level 106 LDL Cholesterol, Calculated 51 Percent Iron Saturation 54 H Total Iron Binding Capacity 198 L Triglycerides Level 97 Vitamin B12 Level Pending Bedside Glucose 123 Medications Medications Current Medications Ondansetron HCl (Zofran Inj) 4 mg Q6H PRN IV NAUSEA AND/OR VOMITING; Start at 14:00 Acetaminophen (Tylenol Tab) 650 mg Q6H PRN PO PAIN LEVEL 1-3 OR FEVER; Start at 14:00 Acetaminophen/ Hydrocodone Bitart ([place]onda (5/325)) 1 tab Q6H PRN PO MODERATE PAIN LEVEL 4-6; Start 06/16/16 at 14:00 Morphine Sulfate (morphine) 2 mg Q4H PRN IV SEVERE PAIN LEVEL 7-10 Last administered on 06/17/16 01:13; Admin Dose 2 MG; Start 06/16/16 at 14:00 Pantoprazole 40 mg 40 mg DAILY@06 IV Last administered on 06/17/16 06:19; Admin Dose 40 MG; Start 06/17/16 at 06:00 Piperacillin Sod/ Tazobactam Sod (Zosyn 3.375gm/ 100 ml (Pmx)) 100 ml @ 200 mls /hr Q6 IVPB Last administered on 06/17/16 06:19; Admin Dose 200 MLS/HR; Start 06/16/16 at 14:00 Furosemide 40 mg 40 mg DAILY IV ; Start 06/17/16 at 09:00 Vancomycin HCl 1.25 gm/Sodium Chloride 250 ml @ 83.333 mls/ hr Q12H IVPB Last administered on 06/17/16 06:19; Admin Dose 83.333 MLS/HR; Start 06/17/16 at 06: 00 Norepinephrine 16 mg/Dextrose 500 ml @ 1.87 mls/hr TITRATE IV Last administered on 06/17/16 05:40; Admin Dose 56.06 MLS/HR; Start 06/17/16 at 06: 00 Dopamine HCl/ Dextrose 250 ml @ 5.455 mls/ hr TITRATE IV ; Start 06/17/16 at 01 :45 Sodium Chloride (NS) 1,000 ml @ 1,000 mls/hr Q1H IV ; Start 06/17/16 at 06:56; Status UNV Fentanyl 25 mcg 25 mcg Q10M IV ; Start 06/17/16 at 07:00; Status UNV Vecuronium [place]/Dextrose (Norcuron/D5W) 100 ml @ 4.36 mls/hr [id number] IV ; Start 06/17/16 at 06:56 Acetaminophen (Tylenol Supp) 650 mg Q4H PRN VA TEMP > 37C; Start 06/17/16 at 07 :00; Status UNV Acetaminophen (Tylenol Liquid) 650 mg Q4H PRN PO TEMP > 37C; Start 06/17/16 at 07:00; Status UNV Acetaminophen (Tylenol Supp) 500 mg Q6H VA ; Start 06/18/16 at 07:00; Status UNV Acetaminophen (Tylenol Liquid) 500 mg Q6H PO ; Start 06/18/16 at 07:00; Status UNV Meperidine HCl (Demerol) 12.5 mg Q4H PRN IV POST OPERATIVE SHIVERING; Start at 07:00; Status UNV Meperidine HCl (Demerol) 25 mg Q4H PRN IV POST OPERATIVE SHIVERING; Start 06/17 at 07:00; Status UNV Eye Lubricant ([place]wa Oint) 1 applic Q6 BOTH EYES ; Start 06/17/16 at 07:00; Status UNV Eye Lubricant (Artificial Tears Oph) 2 drop Q6 BOTH EYES ; Start 06/17/16 at 12: 00; Status UNV Diagnostic Test (Pha) (Accucheck) 1 ea Q1H XX ; Start 06/17/16 at 07:00; Status UNV Dextrose (D50w Syringe) 25 ml Q15M PRN IV Till BS 80 mg/dL or above x2; Start 06/17/16 at 07:00; Status UNV Dextrose (D50w Syringe) 50 ml Q15M PRN IV Till BS 80 mg/dL or above x2; Start 06/17/16 at 07:00; Status UNV BOYD MCLEAN Jun 17, 2016 07:27
[2016-06-17 07:36] LABS: AADO2 Arterial 599.7 mmHg (7.0-24.0); Allen Test ACCEPTAB; Arterial Base Excess -9.3 mmol/L (-3.0-3); Arterial COHb 0.2 % (0.0-3.0); Arterial Fraction of Oxyhgb 80.1 % (93.0-99.0); Arterial HCO3 19.5 mmol/L (22.0-26.0); Arterial MetHb 0.5 % (0.0-1.5); MODE VENT - AC
[2016-06-17 07:43] LABS: FOLATE > 20.0 ng/ml (2.8-20.0)
[2016-06-17] MEDS ORDERED: PROPOFOL 100 ML ONE (07:46)
[2016-06-17] MEDS ORDERED: NOREPINEPHRINE 32 MG in DEXTROSE 5% 250 ML IV SCH (08:00)
[2016-06-17] MEDS ORDERED: ALBUTEROL 0.5% (NEB) 2.5 MG/0.5 ML AMP HHN STA (08:00)
--- NOTE | 2016-06-17 08:00 | QN ---
Documentation Comment HPI: 55-year-old man recently admitted to intensive care unit for shortness of breath and supraventricular tachycardia. Overnight he had 2 or 3 cardiac arrests and required intubation and resuscitation. He has been on a norepinephrine drip and this morning developed pulseless asystole and another round of cardiopulmonary resuscitation was started. Nurses administered IV epinephrine and chest compressions per Past medical history: Hypertension Physical exam: GENERAL: Otherwise young man is intubated and unresponsive HEENT: [place] conjunctivo-dry mucous membranes, no cervical spine deformity NEURO: Unresponsive GCS equals 3, no facial asymmetry, pupils dilated and fixed CARDIAC: Initially no pulses palpated or heart sounds auscultated LUNGS: Crackles throughout the lungs intubated on mechanical ventilator ABDOMEN: Soft nontender, no guarding, no rigidity, no rebound, no psoas sign no obturator sign. Normoactive bowel sounds SKIN: Warm and dry to touch, no abrasions, contusions, or hematomas, no lacerations, EXTREMITIES: No clubbing cyanosis or edema, calves are bilaterally symmetrical, no Homans sign, no popliteal cord sign. Distal pulses equal and bilateral PSYCH: Unable to assess Medical decision making: Advanced cardiac life support was initiated, initial rhythm was asystole and then pulseless electrical activity. IV epinephrine and chest compressions were administered. I ordered sodium bicarbonate 50 mEq IV 1 and he had return of strong pulses, morning labs revealed elevated potassium and I ordered 2 g of calcium chloride IV, albuterol 10 mg via nebulizer, as well as dextrose 25 g IV 1 and normal saline 1 L IV. Patient had continued strong palpable pulses and a narrow complex tachycardic rhythm. Patient was extremely hypertensive just prior to arrest I recommend CT imaging of the brain and possible CT angiogram of the chest 1 the patient is more hemodynamically stable. Further management deferred to admitting team. Critical Care: Time: 35 minutes, this was time separate from other procedures. Treatments/Evaluations: Close monitoring and treatment of unstable vital signs, cardiorespiratory, and neurologic status, while maintaining tight balance of fluid, respiratory, and cardiac interventions. Diagnostic impression: #1) acute neuro-cardiopulmonary arrest. 2.) Acute decompensated systolic heart failure #3) Symptomatic supraventricular tachycardia MARJAN JO MD Jun 17, 2016 08:00
[2016-06-17 08:08] LABS: ASPARTATE AMINO TRANSFERASE 3373 IU/L (15-46)
[2016-06-17 08:37] LABS: CK-MB 23.8 ng/ml (0.0-2.4)
[2016-06-17 08:39] LABS: TROPONIN-I 7.84 ng/ml (0.00-0.12)
[2016-06-17] MEDS ORDERED: HEPARIN 25000 UNITS/250 ML 250 ML IV SCH (09:00)
[2016-06-17] MEDS ORDERED: SODIUM BICARBONATE (IV ADD) 100 MEQ in DEXTROSE 5% 1,000 ML IV SCH (09:00)
[2016-06-17] MEDS ORDERED: FUROSEMIDE 40 MG INJ IV SCH (09:00)
[2016-06-17] MEDS ORDERED: PROPOFOL 100 ML IV SCH (10:00)
[2016-06-17] MEDS ORDERED: NA BICARBONATE 8.4% 50 ML SYG IV ONE (10:00)
[2016-06-17 10:03] LABS: AADO2 Arterial 652.5 mmHg (7.0-24.0); Arterial Base Excess -19.1 mmol/L (-3.0-3); Arterial COHb 0.3 % (0.0-3.0); Arterial Fraction of Oxyhgb 74.8 % (93.0-99.0); Arterial HCO3 11.2 mmol/L (22.0-26.0); Arterial MetHb 0.5 % (0.0-1.5); Arterial Total Hemglobin 11.1 g/dl (12.0-18.0); MODE VENT - AC
[2016-06-17 10:14] LABS: ALBUMIN 2.6 g/dl (3.3-4.9)
[2016-06-17 10:17] LABS: ALBUMIN/GLOBULIN RATIO 0.72; BILIRUBIN,INDIRECT 1.1 mg/dl (0-1.1); BILIRUBIN,TOTAL 1.1 mg/dl (0.2-1.3); CREATININE 1.88 mg/dl (0.61-1.24); TOTAL PROTEIN 6.2 g/dl (6.1-8.1)
[2016-06-17 10:18] LABS: CALCIUM 7.3 mg/dl (8.4-10.2)
--- NOTE | 2016-06-17 10:23 | CONS ---
Date/Time of Note Date/Time of Note DATE: 06/17/16 TIME: 09:54 Assessment/Plan Assessment/Plan Chief Complaint/Hosp Course Cardiogenic shock: EF is ~20%. He has biventricular failure which is very common with non-ischemic cardiomyopathy (in this case possibly from his untreated HIV). Even though he has a troponin elevation to 8, this is likely from demand in the setting of his cardiomyopathy, the SVT he initially presented with and his now cardiogenic shock. He has multiorgan failure including liver, renal. 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 Furthermore, he is in anuric renal failure and though it would be a salvage attempt, the contrast could be further detrimental. His main problem is metabolic and related to his pH. PEA arrest: multiple arrests due to low pH and hyperK. Will not improve clinically if metabolic derangements are not corrected. Acute renal failure: per discussion with nephrology, to unstable for HD and and family does not want HD. Shock liver: due to above Acute respiratory failure: secondary to above. Sats now improving with higher PEEP and dobutamine which was just started post 5th code HIV Problems: Additional Assessment/Plan -for now supportive care to await arrival of pt's brother to make final decision -he will likely keep having PEA arrests in the setting of his pH (bicarb drip/ pushes and appropriate vent changes have been made) -if remains relatively stable will consider bedside IABP later today but may be futile at this point. -started on dobutamine 2.5mcg and tolerating so far -will give lasix 100mg and diuril but doubt he will make urine. -no anticoagulation as INR >2 Consultation Date/Type/Reason Admit Date/Time Jun 16, 2016 at 10:06 Date of Consultation: Jun 17, 2016 Type of Consultation: Cardiology Reason for Consultation NSTEMI, CHD, shock, PEA arrest Referring Provider: TRAVIS ATKINSON MD Hx of Present Illness 55 yo M with previously unknown medial history, discovered to be HIV positive on this admission, who initially presented with tachycardia and SOB and was found to have an SVT to 215 for which he was given adenosine and started on diltiazem. He became progressively SOB requiring BiPAP and eventually had PEA arrest x 5 (including one with me this am). pH was 7.0. Trop has increased to 8. The pt is now under cooling protocol. Spoke with pt's brother and . They note that the pt sees them once a year and is very secretive. They were unaware of his HIV status. They understand the pts condition and prognosis and are awaiting their brother to come from [place] to make decisions. For now they would still like full code and any appropriate tests. Subjective hx not possible: pt non-verbal Social History Smoking Status: Never smoker Exam/Review of Systems Vital Signs Vitals Vital Signs Date Time Temp Pulse Resp B/P Pulse Ox O2 Delivery O2 Flow Rate FiO2 06/17/16 08:11 79 28 74 100 06/17/16 06:30 259/190 06/17/16 05:30 97.4 06/17/16 04:00 Mechanical Ventilator 06/16/16 18:45 2.0 Intake and Output 06/16/16 06/16/16 06/17/16 15:00 23:00 07:00 Intake Total 50 ml 315.9 ml 869.05 ml Output Total 505 ml 20 ml Balance 50 ml -189.1 ml 849.05 ml Exam Constitutional: No alert Head: atraumatic, normocephalic Neck: jvd (14cm) Respiratory: crackles/rales, diminished breath sounds, No clear to auscultation Cardiovascular: edema (1+), systolic murmur (3/6), No regular rate and rhythm (tachycardic ) Gastrointestinal: soft, No distended Extremities: other (cool) Neurological: No nl mental status, No nl speech Results EKG: on admission was SVT at 215 (narrow complex identical QRS with eventual sinus rhythm), diffuse ST depressions with MERLENE in aVR suggesting global ischemia All other EKGs: sinus, no significant ST/T changes and no ST elevation Result Diagram: 06/17/1642906/17/16 0430 Results 24 hrs Laboratory Tests Test 06/16/16 15:57 06/16/16 18:00 06/16/16 19:36 06/16/16 20:00 Arterial Blood HCO3 14.2 L 8.2 *L Arterial Blood Base Excess -10.0 L -19.2 L Arterial Blood Oxygen Saturation 95.0 71.3 L Gabe Test ACCEPTAB ACCEPTAB Arterial Blood Gas Puncture Site Left Radial Right Radial Arterial Blood Carboxyhemoglobin 0.5 0.3 Arterial Blood Date Drawn 06/16/2016 4:52:33 PM 06/16/2016 7:43:59 PM Arterial Blood Methemoglobin 0.2 1.0 Arterial Blood pCO2 (Temp correct) 27.4 L 24.6 L Arterial Blood pH (Temp corrected) 7.333 L 7.139 *L Arterial Blood pO2 (Temp corrected) 82.8 51.7 *L Blood Gas A-a O2 Differential 602.8 H 636.7 H Blood Gas Modality HFNC BIPAP - S/T Blood Gas Notified Time 06/16/2016 4:59:53 PM 06/16/2016 7:52:12 PM Blood Gas Notified Whom [facility] Blood Gas Specimen Source Blood arterial Blood arterial Blood Gas Temperature 37.0 37.0 FiO2 100.0 100.0 Oxyhemoglobin Percent 94.3 70.4 L Total Hemoglobin 13.5 8.0 L Urine Amphetamines Screen NEGATIVE Urine Bacteria RARE Urine Barbiturates NEGATIVE Urine Benzodiazepines Screen NEGATIVE Urine Bilirubin NEGATIVE Urine Cannabinoids NEGATIVE Urine Clarity SLIGHTLY CLOUDY Urine Cocaine Screen NEGATIVE Urine Color YELLOW Urine Glucose NEGATIVE Urine Hemoglobin 3+ H Urine Ketones NEGATIVE Urine Leukocyte Esterase NEGATIVE Urine Microscopic RBC >50 Urine Microscopic WBC 0-2 Urine Nitrite NEGATIVE Urine Opiates Screen NEGATIVE Urine Specific [place] >=1.030 H Urine Squamous Epithelial Cells RARE Urine Total Protein 2+ H Urine Urobilinogen 1.0 E.U./dL Urine pH 6.0 Blood Gas Actual Respiration Rate 46 Blood Gas Critical Value Read Back Karson ROYAL RN Blood Gas IPAP/EPAP Ratio 15/5 Blood Gas Pressure Support 10 Blood Gas Respiration Rate 16.0 Creatine Kinase 272 H Creatine Kinase Index 8.2 Creatinine Kinase MB (Mass) 22.40 H Troponin I 5.150 *H Test 06/16/16 21:46 06/16/16 22:18 06/16/16 23:40 06/17/16 00:34 Arterial Blood HCO3 11.6 L Arterial Blood Base Excess -16.4 L Arterial Blood Oxygen Saturation 97.0 Gabe Test ACCEPTAB Arterial Blood Gas Puncture Site Right Radial Arterial Blood Carboxyhemoglobin 0.1 Arterial Blood Date Drawn 06/16/2016 10:00:58 PM Arterial Blood Methemoglobin 0.4 Arterial Blood pCO2 (Temp correct) 34.8 L Arterial Blood pH (Temp corrected) 7.141 *L Arterial Blood pO2 (Temp corrected) 127.7 H Blood Gas A-a O2 Differential 550.5 H Blood Gas Actual Respiration Rate 52 Blood Gas Critical Value Read Back V GENNY RN Blood Gas IPAP/EPAP Ratio 15/5 Blood Gas Modality MASK - BIPAP Blood Gas Notified Time 06/16/2016 10:09:33 PM Blood Gas Notified Whom Blood Gas Respiration Rate 24.0 Blood Gas Specimen Source Blood arterial Blood Gas Temperature 37.0 FiO2 100.0 Oxyhemoglobin Percent 96.5 Total Hemoglobin 13.4 Activated Partial Thromboplast Time 37.3 H 34.5 Basophils # 0.0 0.0 Basophils % 0.1 0.2 Blood Morphology Comment Eosinophils # 0.0 0.0 Eosinophils % 0.1 0.1 Hematocrit 38.3 L 35.8 L Hemoglobin 12.3 L 11.5 L INR International Normalized Ratio 1.74 2.15 Lymphocytes # 1.4 1.7 Lymphocytes % 11.4 L 14.7 L Mean Corpuscular Hemoglobin 27.8 L 28.5 L Mean Corpuscular Hemoglobin Concent 32.0 32.0 Mean Corpuscular Volume 87.1 88.9 Mean Platelet Volume 8.4 8.4 Monocytes # 0.7 0.4 Monocytes % 5.8 3.1 Neutrophils # 10.2 H 9.5 H Neutrophils % 82.6 H 81.9 H Nucleated Red Blood Cells # 0.0 0.5 H Nucleated Red Blood Cells % 0.0 4.6 H Platelet Count 325 # 312 Prothrombin Time 20.5 H 24.2 H Prothrombin Time Ratio 1.6 1.9 Red Blood Count 4.40 L 4.03 L Red Cell Distribution Width 16.5 H 16.8 H White Blood Count 12.4 H 11.6 H Bedside Glucose 68 L Alanine Aminotransferase (ALT/SGPT) 650 H Albumin 2.5 L Albumin/Globulin Ratio 0.73 Alkaline Phosphatase 113 Anion Gap 33 #H Aspartate Amino Transf (AST/SGOT) 917 H Blood Urea Nitrogen 15 Calcium Level 7.1 L Carbon Dioxide Level 12 L Chloride Level 104 Creatinine 1.73 #H Direct Bilirubin 0.10 Globulin 3.40 H Glucose Level 93 Indirect Bilirubin 1.2 H Magnesium Level 3.6 #H Phosphorus Level 9.0 H Potassium Level 5.9 #H Sodium Level 143 Total Bilirubin 1.3 Total Protein 5.9 L Test 06/17/16 00:35 06/17/16 04:30 06/17/16 06:56 06/17/16 07:00 Creatine Kinase 238 H 277 H Creatine Kinase Index 7.6 8.6 Creatinine Kinase MB (Mass) 18.00 H 23.80 H Troponin I 6.570 *H 7.840 *H Alanine Aminotransferase (ALT/SGPT) 1811 H Albumin 2.8 L Albumin/Globulin Ratio 0.82 Alkaline Phosphatase 121 Anion Gap 37 H Aspartate Amino Transf (AST/SGOT) 3373 H Basophils # 0.0 Basophils % 0.0 Blood Morphology Comment Blood Urea Nitrogen 18 Calcium Level 10.3 H Carbon Dioxide Level 9 *L Chloride Level 104 Cholesterol Level 85 L Cholesterol/HDL Ratio 5.6 Creatinine 2.19 H Direct Bilirubin 0.80 #H Eosinophils # 0.0 Eosinophils % 0.2 Folate > 20.0 H Globulin 3.40 H Glucose Level 60 #L HDL Cholesterol 15 L HIV (1&2) Antibody REACTIVE H Hematocrit 35.5 L Hemoglobin 11.2 L Hemoglobin A1c 6.9 H Hepatitis B Core Total Antibody REACTIVE H Hepatitis B Surface Antigen NEGATIVE Hepatitis C Antibody NEGATIVE Indirect Bilirubin 0.9 Iron Level 106 LDL Cholesterol, Calculated 51 Lymphocytes # 1.8 Lymphocytes % 12.7 L Magnesium Level 3.6 H Mean Corpuscular Hemoglobin 28.1 L Mean Corpuscular Hemoglobin Concent 31.6 L Mean Corpuscular Volume 89.0 Mean Platelet Volume 8.1 Monocytes # 0.2 L Monocytes % 1.2 Neutrophils # 12.1 H Neutrophils % 85.9 H Nucleated Red Blood Cells # 0.6 H Nucleated Red Blood Cells % 4.2 H Percent Iron Saturation 54 H Phosphorus Level 12.3 #H Platelet Count 316 Potassium Level 6.1 *H Red Blood Count 3.99 L Red Cell Distribution Width 16.7 H Sodium Level 144 Total Bilirubin 1.7 H Total Iron Binding Capacity 198 L Total Protein 6.2 Triglycerides Level 97 Vitamin B12 Level > 1000 H White Blood Count 14.1 #H Bedside Glucose 123 Arterial Blood HCO3 19.5 L Arterial Blood Base Excess -9.3 L Arterial Blood Oxygen Saturation 80.7 L Gabe Test ACCEPTAB Arterial Blood Gas Puncture Site Right Radial Arterial Blood Carboxyhemoglobin 0.2 Arterial Blood Date Drawn 06/17/2016 7:20:09 AM Arterial Blood Methemoglobin 0.5 Arterial Blood pCO2 (Temp correct) 56.9 H Arterial Blood pH (Temp corrected) 7.152 *L Arterial Blood pO2 (Temp corrected) 56.4 L Blood Gas A-a O2 Differential 599.7 H Blood Gas Actual Respiration Rate 28 Blood Gas Critical Value Read Back Gopal BARRETT RN Blood Gas Low PEEP Setting 7.0 Blood Gas Modality VENT - AC Blood Gas Notified Time 06/17/2016 7:35:06 AM Blood Gas Notified Whom JLD Blood Gas Respiration Rate 16.0 Blood Gas Specimen Source Blood arterial Blood Gas Temperature 37.0 Blood Gas Tidal Volume 550.0 FiO2 100.0 Oxyhemoglobin Percent 80.1 L Total Hemoglobin 10.0 L Test 06/17/16 09:27 Bedside Glucose 107 Medications Medications Current Medications Ondansetron HCl (Zofran Inj) 4 mg Q6H PRN IV NAUSEA AND/OR VOMITING; Start at 14:00 Acetaminophen (Tylenol Tab) 650 mg Q6H PRN PO PAIN LEVEL 1-3 OR FEVER; Start at 14:00 Acetaminophen/ Hydrocodone Bitart ([place] (5/325)) 1 tab Q6H PRN PO MODERATE PAIN LEVEL 4-6; Start 06/16/16 at 14:00 Morphine Sulfate (morphine) 2 mg Q4H PRN IV SEVERE PAIN LEVEL 7-10 Last administered on 06/17/16 01:13; Admin Dose 2 MG; Start 06/16/16 at 14:00 Pantoprazole 40 mg 40 mg DAILY@06 IV Last administered on 06/17/16 06:19; Admin Dose 40 MG; Start 06/17/16 at 06:00 Piperacillin Sod/ Tazobactam Sod (Zosyn 3.375gm/ 100 ml (Pmx)) 100 ml @ 200 mls /hr Q6 IVPB Last administered on 06/17/16 06:19; Admin Dose 200 MLS/HR; Start 06/16/16 at 14:00 Furosemide 40 mg 40 mg DAILY IV ; Start 06/17/16 at 09:00 Vancomycin HCl 1.25 gm/Sodium Chloride 250 ml @ 83.333 mls/ hr Q12H IVPB Last administered on 06/17/16 06:19; Admin Dose 83.333 MLS/HR; Start 06/17/16 at 06: 00 Dopamine HCl/ Dextrose 250 ml @ 5.455 mls/ hr TITRATE IV Last administered on 06/17/16 01:45; Admin Dose 5.455 MLS/HR; Start 06/17/16 at 01:45 Fentanyl 25 mcg 25 mcg Q10M IV ; Start 06/17/16 at 07:00 Vecuronium [place]/Dextrose (Norcuron/D5W) 100 ml @ 4.36 mls/hr [id number] IV Last administered on 06/17/16 08:20; Admin Dose 3.63 MLS/HR; Start 06/17/16 at 06:56 Acetaminophen (Tylenol Supp) 650 mg Q4H PRN MA TEMP > 37C; Start 06/17/16 at 07 :00 Acetaminophen (Tylenol Liquid) 650 mg Q4H PRN PO TEMP > 37C; Start 06/17/16 at 07:00 Acetaminophen (Tylenol Supp) 500 mg Q6H MA ; Start 06/18/16 at 07:00 Acetaminophen (Tylenol Liquid) 500 mg Q6H PO ; Start 06/18/16 at 07:00 Meperidine HCl (Demerol) 12.5 mg Q4H PRN IV POST OPERATIVE SHIVERING; Start at 07:00 Meperidine HCl (Demerol) 25 mg Q4H PRN IV POST OPERATIVE SHIVERING; Start 06/17 at 07:00 Eye Lubricant ([place]wa Oint) 1 applic Q6 BOTH EYES ; Start 06/17/16 at 07:00 Eye Lubricant (Artificial Tears Oph) 2 drop Q6 BOTH EYES ; Start 06/17/16 at 12: 00 Diagnostic Test (Pha) (Accucheck) 1 ea Q1H XX ; Start 06/17/16 at 07:00 Dextrose (D50w Syringe) 25 ml Q15M PRN IV Till BS 80 mg/dL or above x2; Start 06/17/16 at 07:00 Dextrose 50 ml 50 ml Q15M PRN IV Till BS 80 mg/dL or above x2; Start 06/17/16 at 07:00 Sodium Bicarbonate 100 meq/Dextrose 1,100 ml @ 100 mls/hr Q11H IV ; Start 2/15 /17 at 09:00 Norepinephrine/ Dextrose (Levophed/D5W) 250 ml @ 0.46 mls/hr TITRATE IV ; Start 06/17/16 at 08:00 SANDEEP LINARES Jun 17, 2016 10:04
[2016-06-17] MEDS ORDERED: SOD CHLORIDE 0.9% 250 ML IV* ONE (10:30)
[2016-06-17 10:31] LABS: CK-MB 21.5 ng/ml (0.0-2.4); TROPONIN-I 6.58 ng/ml (0.00-0.12)
[2016-06-17] MEDS ORDERED: DOBUTamine/D5W 2 MG/ML DRIP 250 ML IV SCH ×2 (11:00)
--- NOTE | 2016-06-17 11:20 | CONS ---
DATE OF ADMISSION: 06/16/2016 DATE OF CONSULTATION: 06/17/2016 REFERRING PHYSICIAN: VINAY VIRAMONTES MD TYPE OF CONSULTATION: Nephrology. REASON FOR CONSULTATION: Acute kidney injury, acute hyperkalemia, potassium 6. HISTORY OF PRESENT ILLNESS: This is a 55-year-old male who has a past medical history of hypertensi on, unclear whether the patient was taking his medications, but he presented here with acute respira tory failure secondary to pulmonary edema and right-sided pneumonia. The patient was admitted for s epsis and had multiple episodes of SVT and a pulseless electrical activity. He was found to be juancarlos rely acidotic, has been started on a bicarbonate drip with 2 ampules of sodium bicarbonate. Despite being on the bicarbonate drip, his pH has been around 7.09. His potassium is 6, bicarbonate is 10. The patient is completely shutting down his kidneys. There is no urine output since the morning. Re nal has been consulted for acute renal failure/acute kidney injury and also for acute hyperkalemia. REVIEW OF SYSTEMS: Unable to obtain from the patient. Patient is currently intubated and sedated o n ventilator with multiple drips for blood pressure support. PAST MEDICAL HISTORY: Only notable for hypertension. PAST SURGICAL HISTORY: Not available. HOME MEDICATIONS: 1. Losartan. 2. Hydrochlorothiazide. ALLERGIES: NO KNOWN DRUG ALLERGIES. FAMILY HISTORY: Diabetes in the father. REASON FOR ADMISSION: A 12-point review of systems has been obtained and is negative except for wha t is mentioned in the history of present illness. PHYSICAL EXAMINATION: VITAL SIGNS: Temperature 98.9, heart rate 90, respirations 16, blood pressure 102/50 with 3 pressor s. HEENT: ET tube in place, sedated on ventilator. NECK: Supple. HEART: Decreased S1, S2, tachycardia, heart rate up to 130s. LUNGS: Bilateral coarse breath sounds with minimal expiratory wheezing. ABDOMEN: Soft, NG tube in place. Bowel sounds are hypoactive. EXTREMITIES: No clubbing, cyanosis, or edema. NEUROLOGICAL: Uncooperative for exam. LABORATORY DATA/DIAGNOSTIC IMAGING: Sodium 144, potassium 6, chloride 102, bicarbonate 10, BUN 16, c reatinine 1.8, glucose 98, calcium is 7.3, AST 948, ALT 680 PT 24.2, PTT 34.5, INR is 2.15, pH 7.08 , pCO2 35, pO2 39, bicarbonate 11. IMPRESSION: This is a 55-year-old male with: 1. Acute kidney injury secondary to sepsis from acute tubular necrosis from sepsis. 2. Acute hyperkalemia secondary to acute kidney injury. 3. Acute respiratory failure, currently intubated on pressors. 4. Septic shock on 3 pressors. 5. History of hypertension. 6. Severe metabolic acidosis despite being on a bicarbonate drip. PLAN: The patient is currently seen in the ICU. Thank you, Dr. Viramontes, for this consultation. The patient's blood pressure is very labile with 3 p ressors on board. His blood pressure is still in the 90s. The patient completely shuts down his ki dneys. There is no urine output since the morning. The patient needs emergent renal replacement the rapy with hemodialysis, but he is too unstable to do a hemodialysis. He is coagulopathic with shock liver. Also he is on multiple pressors for blood pressure support. I had a discussion with the patient's brother and [id number] at bedside so they know about the jena berger's critical and poor conditions and they agreed not to have hemodialysis. The patient is too c ritically ill to tolerate any kind of renal replacement therapy, so we are not planning to do any he modialysis. The patient's family has been advised to contact other family members and try to make a decision and further plan about code status discussed. The patient currently seen in the ICU and h e will be followed up by the cardiology and primary care service. Dictated By: SHAYNE SALES MD, KP/NATA Conf#: [id number] DID#: [id number]
[2016-06-17] MEDS ORDERED: FUROSEMIDE 40 MG INJ IV ONE (11:30)
--- NOTE | 2016-06-17 11:53 | RADRPT ---
PROCEDURE: CHEST 1VW CLINICAL INDICATION: Shortness of breath TECHNIQUE: Single frontal view of the chest was obtained COMPARISON: 06/17/2016 FINDINGS: Stable endotracheal tube, nasogastric tube, and left PICC. The cardiac size is mildly enlarged, stable. Aortic vascular calcifications are demonstrated. There is worsening moderate pulmonary vascular congestion. Worsening layering right effusion associated atelectasis. Mild degenerative changes of the visualized osseous structures are visualized. IMPRESSION: 1. Worsening moderate pulmonary vascular congestion, interstitial edema, and moderate right layerin g effusion with associated atelectasis. 2. Atherosclerosis. RPTAT:PP .Be Dixon MD, MD Date Time Electronically viewed and signed by .Be Dixon MD, MD on 06/17/2016 11:53 .V/
[2016-06-17] MEDS ORDERED: ARTIFICIAL TEARS 15 ML OPH BOTH EYES SCH (12:00)
--- NOTE | 2016-06-17 12:17 | PN ---
DATE: 06/17/2016 SUBJECTIVE: The patient had been coding all morning, currently intubated, on multiple pressors, bica rb drip, vecuronium, dopamine, Levophed. He is and on protocol. White blood cell count 14.1 with H and H of 11.2 and 35.5. Platelets 316. Neutrophils 85.9. BUN 1 6, creatinine 1.88. MICROBIOLOGY: Cultures are not in the computer yet. INDWELLINGS: Endotracheal tube, NG tube, Singh, left subclavian triple lumen catheter, A-line. ANTIMICROBIALS: The patient is on: 1. IV vancomycin. 2. Zosyn. DIAGNOSTICS: The chest x-ray this morning revealed no pneumothorax. Increased right pleural fluid with infiltrates. PHYSICAL EXAMINATION: GENERAL: Well-developed, middle-aged man who is medically paralyzed and in no dist ress. HEENT: With fixed pupils. Head is atraumatic, normocephalic. Sclerae anicteric. Buccal mucosa dr y. NECK: Supple. CHEST: Rise symmetrical. Breath sounds with bilateral rhonchi. HEART: S1 and S2, tachycardic. ABDOMEN: Distended. Bowel tones very hyperactive. EXTREMITIES: With edema. ASSESSMENT: 1. Severe sepsis with shock and multisystem organ failure. 2. Positive human immunodeficiency virus, details unknown. 3. Acute respiratory failure secondary to pulmonary edema and pneumonia, possibly aspiration. 4. Urinary retention. 5. Anemia. 6. Acute renal failure. 7. Transaminitis, possibly shock liver. PLAN: The patient is doing poorly. He is covered with broad-spectrum antibiotics. Cultures are pe nding. He is still full code. We will send serology for CD4 count and viral load. Await for cultu res. Follow recommendations of consultants. Dictated By: PRAVEENA FELIZ CHANNEL REBUILDER for BAO MANRIQUEZ MD NI/NTS Conf#: [id number] DID#: [id number]
[2016-06-17] MEDS ORDERED: EPINEPHrine 4 MG in DEXTROSE 5% 246 ML IV SCH (12:30)
[2016-06-17] MEDS ORDERED: CHLOROTHIAZIDE 500 MG INJ IV ONE (12:30)
--- NOTE | 2016-06-17 12:43 | EN ---
Date/Time of Note Date/Time of Note DATE: 06/17/16 TIME: 12:41 ER Progress Note I was called to the patient's bedside because of a CODE BLUE. In short: The patient presented with SVT, cardiac arrhythmia, heart failure, status post intubation. The patient has had greater than 5 cardiac arrest throughout the past 12 hours. Upon my arrival the patient was undergoing CPR General: Unresponsive Head: Normocephalic, atraumatic Eyes: Fixed and dilated pupils ENT: Moist mucous membranes, intubated Neck: Supple, no lymphadenopathy Respiratory: Mechanical breath sounds Cardiovascular: No spontaneous cardiac activity Abdominal: Soft, non-protuberant, no pulsatile mass : Deferred MSK: No spontaneous motor activity Neurologic: No spontaneous neurologic activity Skin: No evidence of trauma Cardiopulmonary Resuscitation by me: See code documentation for specific details. ACLS and BLS were performed with high quality chest compressions and minimal interruptions. Reversible causes were assessed and treated. CODE BLUE events: Upon my arrival I asked for a pulse check. The patient had pulses and return of spontaneous circulation. The patient is maximized on multiple pressors. Disposition: The patient is critically ill with likely futile outcome. I recommended that the primary care team discuss further goals of care with the family. It appears they are already in these conversations. Diagnostic impression: Cardiac arrest with return of spontaneous circulation LUCIA WILLIS MD Jun 17, 2016 12:43
--- NOTE | 2016-06-17 13:11 | EN ---
Date/Time of Note Date/Time of Note DATE: 06/17/16 TIME: 13:10 Event Note Medicine Medicine Event Note Patient admitted with severe sepsis and severe hypotension requiring high-dose pressor support. This is a right femoral line arterial line placement procedure. Next Right femoral area was prepped in usual sterile fashion. All sterile barrier precautions were undertaken. A 6 inch, 18-gauge right femoral arterial catheter was placed without difficulty. Next No immediate complications. The procedure was deemed a medical emergency as the patient was getting progressively hypotensive requiring very high dose pressors. BOYD MCLEAN Jun 17, 2016 13:11
--- NOTE | 2016-06-17 14:51 | RADRPT ---
Vent Rate: 75 bpm RR Interval: 0 msec HI Interval: 172 msec QRS Duration: 92 msec QT Interval: 444 msec QTC Interval: 495 msec P-R-T [place]: 13 - -18 - 94 degrees Normal sinus rhythm ST amp; T wave abnormality, consider lateral ischemia Prolonged QT Abnormal ECG Electronically Signed By: Brian Munoz [id number]
--- NOTE | 2016-06-17 14:52 | RADRPT ---
Vent Rate: 84 bpm RR Interval: 0 msec [place] Interval: 166 msec QRS Duration: 80 msec QT Interval: 366 msec QTC Interval: 432 msec P-R-T [place]: 44 - 60 - -77 degrees Normal sinus rhythm Possible Left atrial enlargement ST amp; T wave abnormality, consider anterolateral ischemia Abnormal ECG Electronically Signed By: Brian Munoz [id number]
--- NOTE | 2016-06-17 14:52 | RADRPT ---
Vent Rate: 91 bpm RR Interval: 0 msec [place] Interval: 186 msec QRS Duration: 92 msec QT Interval: 390 msec QTC Interval: 479 msec P-R-T [place]: 64 - -23 - -80 degrees Sinus rhythm with premature atrial complexes Possible Inferior infarct , age undetermined ST amp; T wave abnormality, consider anterolateral ischemia Abnormal ECG Electronically Signed By: Brian Munoz [id number]
--- NOTE | 2016-06-17 15:59 | DS ---
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 HOSPITAL COURSE: The patient is a 55-year-old male who on arrival reported only a history of hypert ension. He had denied any other medical history, presented with weakness and shortness of breath. The patient looked very guarded on arrival. He was started on high flow oxygen. He was noted to be septic with leukocytosis. X-ray showed a right upper lobe infiltrate and right pleural effusion. The patient had a 2D echo that showed an EF of 20%. The patient's HIV level was checked and it was positive. The patient coded multiple times, 8 to be exact. The family stated that he had not been in contact for some time. Unclear if he has a known history of HIV in the past. ____ presentation, it appears that patient likely had HIV some time now and likely had AIDS syndrome. The patient was seen by cardiology as well as nephrology and pulmonology. The patient was also seen by ID. The jena berger went into multiorgan failure from the multiple cardiac arrests. The patient was put on epine phrine drip, but was PEA again. He was coded was given several more amps of epinephrine, but he con tinued pulseless and finally went to asystole and the patient was pronounced on 06/17/2016. Dictated By: VINAY HELTON MD BS/NTS Conf#: [id number] DID#: [id number]
[2016-06-18] MEDS ORDERED: ACETAMINOPHEN 650 MG SUPP PR SCH (07:00)
[2016-06-18] MEDS ORDERED: ACETAMINOPHEN 650MG/20.3ML CUP PO SCH (07:00)
== END 2016-06-17 13:12 | disposition expired | DRG 871 ==
LOC: E/R 08:32 → ICU 10:06
PROVIDERS: ADMIT Family Medicine; ATTEND Family Medicine
PROC: 5A12012 Performance of Cardiac Output, Single, Manual (ICD-10-PCS; principal; 2016-06-16)
DX: A41.9 Sepsis, unspecified organism (principal); R65.21 Severe sepsis with septic shock; J96.00 Acute respiratory failure, unspecified whether with hypoxia or hypercapnia; I46.9 Cardiac arrest, cause unspecified; J18.9 Pneumonia, unspecified organism; R57.0 Cardiogenic shock; N17.9 Acute kidney failure, unspecified; I42.9 Cardiomyopathy, unspecified; E83.42 Hypomagnesemia; D68.9 Coagulation defect, unspecified; I10 Essential (primary) hypertension; E83.51 Hypocalcemia; R33.8 Other retention of urine
CPT/HCPCS: 36600; 71010; 80048; 80053; 80061; 80306; 80307; 81001; 81003; 82550; 82553; 82607; 82746; 82803; 82962; 83036; 83540; 83735; 84100; 84484; 85025; 85610; 85730; 86701; 86703; 86704; 86709; 86803; 87081; 87340; 92950; 93005; 93306; 94002; 94003; 94640; 94660; 94664; 94770; 96365; 96366; 96375; J1250; J1940; C9113; J0153; J0171; J0610; J1205; J1265; J1815; J2060; J2270; J2543; J3370; J3475; J3480; J7030; J7040; J7050; J7070; P9047